=== PATIENT | female | born 1970 | race Two or more races ===

== ENCOUNTER 2023-12-19 01:46 | Emergency (ER) | payer MEDICAID, OTHER ==
[~2023-12-19] VITALS: Ht 162.6 cm; Wt 61.3 kg
[2023-12-19 02:20] VITALS: BP 128/84; PULSE 65; RESP 15; TEMP 97.7; O2SAT 98
[2023-12-19] MEDS ORDERED: AUG875T PO (02:44)
[2023-12-19] MEDS ORDERED: IBUP1TAB5 PO (02:44)
[2023-12-19] MEDS ORDERED: MUPI2OIN2 EX (02:44)
[2023-12-19] MEDS: LIDOCAINE 1% HCL (LOCAL ANESTH.) INJ 20ML MDV ID ONE (03:12)
[2023-12-19] MEDS: IBUPROFEN 800 MG TAB PO ONE (03:18)
[2023-12-19] MEDS: TETANUS-DIPTH-ACEL PERTUSSIS 0.5ML SYR Tdap IM ONE (03:18)
[2023-12-19] MEDS: NEOMYCIN-BACITRACIN-POLYM UNITDOSE PKG TOP OINT TOP ONE (03:19)
[2023-12-19] MEDS: AMOXICILLIN/CLAVUL 875 MG TAB PO ONE (03:19)
== END 2023-12-19 03:31 | disposition home or self-care (01) ==
LOC: ER 01:46
DX: S61.412A Laceration without foreign body of left hand, initial encounter (principal); S60.443A External constriction of left middle finger, initial encounter; Z79.899 Other long term (current) drug therapy; W54.0XXA Bitten by dog, initial encounter; Y93.89 Activity, other specified; Y92.89 Other specified places as the place of occurrence of the external cause; Y99.8 Other external cause status
CPT/HCPCS: 12004; 90471; 90715; 99284; J2001